=== PATIENT | male | born 1985 | race Hispanic/Latino ===

== ENCOUNTER 2019-10-15 19:57 | Emergency (ER) | payer SELFPAY ==
[2019-10-15] MEDS ORDERED: Lidocaine 1% (PF) 30 ML VIAL ONE (20:32)
[2019-10-15] MEDS ORDERED: Adacel (T-DAP) 0.5 ML SYRINGE ONE (21:38)
[2019-10-15] MEDS ORDERED: Bacitracin 1 PK ONE (21:38)
== END 2019-10-15 22:30 | disposition home or self-care (01) ==
LOC: NAV ERS 19:57
DX: S41.112A Laceration without foreign body of left upper arm, initial encounter (principal); Z23 Encounter for immunization; W11.XXXA Fall on and from ladder, initial encounter
CPT/HCPCS: 12032; 90471; 90715; J2001

== ENCOUNTER 2019-10-24 16:07 | Emergency (ER) | payer SELFPAY ==
[2019-10-24] MEDS ORDERED: Bacitracin 1 PK ONE (16:21)
== END 2019-10-24 16:30 | disposition home or self-care (01) ==
LOC: NAV ERS 16:07
DX: S41.112D Laceration without foreign body of left upper arm, subsequent encounter (principal)